=== PATIENT | male | born 1960 | race Caucasian/White ===

== ENCOUNTER → 2020-09-27 | Outpatient (CLI) | payer MEDICAID ==
--- NOTE | 2020-09-28 09:02 | REP ---
INDICATION: ACUTE BRONCHITIS, UNSPECIFIED COPD. COMPARISON: Comparison chest x-ray September 20, 2010. TECHNIQUE: Two views.. FINDINGS: The lungs are hyperinflated but free of infiltrate. Pleural angles are sharp. Heart size is normal. Pulmonary vasculature is not increased. No acute bony abnormality is seen. There are degenerative changes in the thoracic spine. IMPRESSION: Hyperinflation, no active disease.. <Electronically signed by Jay Ferguson > 09/28/20 [id number]
== END ==
LOC: M WUC 15:55
PROVIDERS: ATTEND Nurse Practitioner Adult Health
DX: J20.9 Acute bronchitis, unspecified (principal); J44.1 Chronic obstructive pulmonary disease with (acute) exacerbation; K44.9 Diaphragmatic hernia without obstruction or gangrene

== ENCOUNTER → 2020-10-27 | Outpatient (CLI) | payer OTHER ==
--- NOTE | 2020-10-27 10:05 | REP ---
INDICATION: HEP C COMPARISON: None. TECHNIQUE: Real time tiwari scale ultrasound examination using curved array transducer. FINDINGS: Liver is normal in contour, size, and echogenicity without focal hepatic lesions identified. Pancreas is incompletely evaluated due to interposed bowel gas. The gallbladder is normal and without gallstones, wall thickening, or pericholecystic fluid. There is suggestions for benign adenomyomatosis. No biliary ductal dilatation is appreciated and the common bile duct measures 6.6 mm diameter. Right kidney is normal in reniform shape without hydronephrosis and measures 10.4 x 6.3 x 6.7 cm. No ascites in the visualized right upper quadrant. IMPRESSION: Essentially normal limited right upper quadrant ultrasound <Electronically signed by Jose Tesfaye > 10/27/20 1002
== END ==
LOC: M RAD 09:26
PROVIDERS: ATTEND Internal Medicine Infectious Disease
DX: K74.69 Other cirrhosis of liver (principal)

== ENCOUNTER → 2020-11-12 | Outpatient (CLI) | payer MEDICAID, OTHER ==
[~2020-11-12] MED LIST: INCR1INH; OMEP-221; SOFO1TAB
== END ==
LOC: M LABSMTC 09:39
PROVIDERS: ATTEND Anesthesiology
DX: Z01.812 Encounter for preprocedural laboratory examination (principal)

== ENCOUNTER → 2020-11-16 | Outpatient (REF) | payer OTHER ==
[2020-11-16 15:25] LABS: ALBUMIN 3.5 GM/DL (3.2-5.2); BILIRUBIN,DIRECT 0.1 MG/DL (0.0-0.2); BILIRUBIN,TOTAL 0.3 MG/DL (0.2-1.0); TOTAL PROTEIN 7.1 GM/DL (6.4-8.2)
[2020-11-17 13:07] LABS: HEPATITIS C QUANTITATION <15 IU/mL (.)
== END ==
LOC: M SFHCPLAZ 09:35
PROVIDERS: ATTEND Internal Medicine Infectious Disease
DX: B18.2 Chronic viral hepatitis C (principal); K74.69 Other cirrhosis of liver

== ENCOUNTER 2020-11-17 08:52 | Day surgery (SDC) | payer OTHER ==
[~2020-11-17] VITALS: Ht 170.2 cm; Wt 71.7 kg
[~2020-11-17 08:52] MED LIST changes: +NS 1,000 ML IV ONE
[2020-11-17] MEDS ORDERED: fentaNYL 100 MCG/2 ML INJECTION (J3010) As Ordered ONE (10:34)
[2020-11-17] MEDS ORDERED: LIDOCAINE 2% 100MG/5ML SDV (FOR ANES.) As Ordered ONE (10:34)
[2020-11-17] MEDS ORDERED: propofoL 500 MG/50 ML VIAL As Ordered ONE ×2 (10:34→11:15)
[2020-11-17] MEDS ORDERED: ePHEDrine SULFATE 25 MG/5 ML(5MG/ML) SYRINGE As Ordered ONE (10:46)
--- NOTE | 2020-11-17 11:27 | ROOR ---
Patient Name: Miguel Kim Procedure Date: 11/17/2020 10:29 AM Date of : 1960 Age: 60 Room: [facility] Gender: Male Note Status: Finalized Procedure: Upper GI endoscopy Indications: Heartburn Providers: Edgardo Mccarthy MD Referring MD: DAVID DOWD NP Requesting Provider: Medicines: Monitored Anesthesia Care Complications: No immediate complications. Procedure: Pre-Anesthesia Assessment: - Prior to the procedure, a History and Physical was performed, and patient medications and allergies were reviewed. The patient is competent. The risks and benefits of the procedure and the sedation options and risks were discussed with the patient. All questions were answered and informed consent was obtained. Patient identification and proposed procedure were verified by the physician, the nurse and the anesthesiologist in the endoscopy suite. Mental Status Examination: alert and oriented. Airway Examination: normal oropharyngeal airway and neck mobility. Respiratory Examination: clear to auscultation. CV Examination: normal. Prophylactic Antibiotics: The patient does not require prophylactic antibiotics. Prior Anticoagulants: The patient has taken no previous anticoagulant or antiplatelet agents. ASA Grade Assessment: II - A patient with mild systemic disease. After reviewing the risks and benefits, the patient was deemed in satisfactory condition to undergo the procedure. The anesthesia plan was to use monitored anesthesia care (MAC). Immediately prior to administration of medications, the patient was re-assessed for adequacy to receive sedatives. The heart rate, respiratory rate, oxygen saturations, blood pressure, adequacy of pulmonary ventilation, and response to care were monitored throughout the procedure. The physical status of the patient was re-assessed after the procedure. The Endoscope was introduced through the mouth, and advanced to the second part of duodenum. The upper GI endoscopy was accomplished without difficulty. The patient tolerated the procedure well. Findings: There were esophageal mucosal changes suggestive of short-segment Corley's esophagus present at the gastroesophageal junction. The maximum longitudinal extent of these mucosal changes was 0.5 cm in length. Mucosa was biopsied with a cold forceps for histology. One specimen bottle was sent to pathology. Estimated blood loss was minimal. The entire examined stomach was normal. A single 1 mm mucosal nodule with a localized distribution was found in the duodenal bulb. This was biopsied with a cold forceps for histology. Estimated blood loss was minimal. Impression: - Esophageal mucosal changes suggestive of short-segment Corley's esophagus. Biopsied. - Normal stomach. - Mucosal nodule found in the duodenum. Biopsied. Recommendation: - Discharge patient to home (ambulatory). - Continue present medications. - Await pathology results. - Telephone my office for pathology results in 1 week. Procedure Code(s): --- Professional --- 62861, Esophagogastroduodenoscopy, flexible, transoral; with biopsy, single or multiple Diagnosis Code(s): --- Professional --- K22.8, Other specified diseases of esophagus K31.89, Other diseases of stomach and duodenum R12, Heartburn CPT copyright 2019 [employer]. All rights reserved. The codes documented in this report are preliminary and upon experimental aircraft mechanic review may be revised to meet current compliance requirements. Edgardo Mccarthy MD Edgardo Mccarthy MD 11/17/2020 11:26:20 AM Electronically signed by Edgardo Mccarthy MD Number of Addenda: 0 Note Initiated On: 11/17/2020 10:29 AM Estimated Blood Loss: Estimated blood loss was minimal.
--- NOTE | 2020-11-17 11:32 | ROOR ---
Patient Name: Miguel Kim Procedure Date: 11/17/2020 10:29 AM Date of : 1960 Age: 60 Room: [facility] Gender: Male Note Status: Finalized Procedure: Colonoscopy Indications: Rectal bleeding Providers: Edgardo Mccarthy MD Referring MD: DAVID DOWD NP Requesting Provider: Medicines: Monitored Anesthesia Care Complications: No immediate complications. Procedure: Pre-Anesthesia Assessment: - Prior to the procedure, a History and Physical was performed, and patient medications and allergies were reviewed. The patient is competent. The risks and benefits of the procedure and the sedation options and risks were discussed with the patient. All questions were answered and informed consent was obtained. Patient identification and proposed procedure were verified by the physician, the nurse and the anesthesiologist in the endoscopy suite. Mental Status Examination: alert and oriented. Airway Examination: normal oropharyngeal airway and neck mobility. Respiratory Examination: clear to auscultation. CV Examination: normal. Prophylactic Antibiotics: The patient does not require prophylactic antibiotics. Prior Anticoagulants: The patient has taken no previous anticoagulant or antiplatelet agents. ASA Grade Assessment: II - A patient with mild systemic disease. After reviewing the risks and benefits, the patient was deemed in satisfactory condition to undergo the procedure. The anesthesia plan was to use monitored anesthesia care (MAC). Immediately prior to administration of medications, the patient was re-assessed for adequacy to receive sedatives. The heart rate, respiratory rate, oxygen saturations, blood pressure, adequacy of pulmonary ventilation, and response to care were monitored throughout the procedure. The physical status of the patient was re-assessed after the procedure. The Colonoscope was introduced through the anus and advanced to the cecum, identified by appendiceal orifice and ileocecal valve. The colonoscopy was somewhat difficult. The patient tolerated the procedure well. The quality of the bowel preparation was fair. Findings: The perianal and digital rectal examinations were normal. Three sessile polyps were found in the descending colon. The polyps were 2 to 4 mm in size. These polyps were removed with a hot snare. Resection and retrieval were complete. Estimated blood loss was minimal. A 20 mm polyp was found in the sigmoid colon. The polyp was pedunculated. The polyp was removed with a hot snare. Resection and retrieval were complete. Area was successfully injected with 2 mL Jen ink for tattooing. Estimated blood loss: none. A 10 mm polyp was found in the sigmoid colon. The polyp was pedunculated. The polyp was removed with a hot snare. Resection and retrieval were complete. Estimated blood loss: none. Multiple small-mouthed diverticula were found in the sigmoid colon and descending colon. The retroflexed view of the distal rectum and anal verge was normal and showed no anal or rectal abnormalities. Impression: - Preparation of the colon was fair. - Three 2 to 4 mm polyps in the descending colon, removed with a hot snare. Resected and retrieved. - One 20 mm polyp in the sigmoid colon, removed with a hot snare. Resected and retrieved. Injected. - One 10 mm polyp in the sigmoid colon, removed with a hot snare. Resected and retrieved. - Diverticulosis in the sigmoid colon and in the descending colon. - The distal rectum and anal verge are normal on retroflexion view. Recommendation: - Discharge patient to home (ambulatory). - Telephone my office for pathology results in 1 week. - Repeat colonoscopy in 1 year for surveillance of multiple polyps. Procedure Code(s): --- Professional --- 16499, Colonoscopy, flexible; with removal of tumor(s), polyp(s), or other lesion(s) by snare technique 44962, Colonoscopy, flexible; with directed submucosal injection(s), any substance Diagnosis Code(s): --- Professional --- K63.5, Polyp of colon K62.5, Hemorrhage of anus and rectum K57.30, Diverticulosis of large intestine without perforation or abscess without bleeding CPT copyright 2019 [employer]. All rights reserved. The codes documented in this report are preliminary and upon parboiler review may be revised to meet current compliance requirements. Edgardo Mccarthy MD Edgardo Mccarthy MD 11/17/2020 11:32:10 AM Electronically signed by Edgardo Mccarthy MD Number of Addenda: 0 Note Initiated On: 11/17/2020 10:29 AM Estimated Blood Loss: Estimated blood loss was minimal.
[2020-11-17 11:45] VITALS: BP 118/87
== END 2020-11-17 11:50 | disposition home or self-care (01) ==
LOC: M OPP 08:52
PROVIDERS: ATTEND Surgery
DX: D12.4 Benign neoplasm of descending colon (principal); D12.5 Benign neoplasm of sigmoid colon; K57.30 Diverticulosis of large intestine without perforation or abscess without bleeding; K62.5 Hemorrhage of anus and rectum; K22.8 Other specified diseases of esophagus; K31.89 Other diseases of stomach and duodenum; R12 Heartburn; F17.210 Nicotine dependence, cigarettes, uncomplicated; B19.20 Unspecified viral hepatitis C without hepatic coma; Z79.899 Other long term (current) drug therapy; Z88.8 Allergy status to other drugs, medicaments and biological substances
CPT/HCPCS: 43239; 45381; 45385; 88305; J3010

== ENCOUNTER 2022-07-03 05:09 | Emergency (ER) | payer OTHER ==
[~2022-07-03] VITALS: Ht 170.2 cm; Wt 72.2 kg
[~2022-07-03 05:09] MED LIST changes: -NS 1,000 ML IV ONE; -OMEP-221; +OMEP40CA5
[2022-07-03 05:14] VITALS: BP 160/98
[2022-07-03] MEDS ORDERED: LOPI600T PO (05:21)
== END 2022-07-03 09:35 | disposition left against medical advice (07) ==
LOC: M ED 05:09
DX: Z53.21 Procedure and treatment not carried out due to patient leaving prior to being seen by health care provider (principal)

== ENCOUNTER → 2023-06-11 | Outpatient (CLI) | payer OTHER, MEDICARE ==
[~2023-06-11] MED LIST changes: +LOPI600T PO
== END ==
LOC: M RAD 11:15
PROVIDERS: ATTEND Physician Assistant
DX: Z87.891 Personal history of nicotine dependence (principal)

== ENCOUNTER 2024-08-03 18:28 | Observation (INO) | payer OTHER, MEDICAID ==
[~2024-08-03] VITALS: Ht 165.1 cm; Wt 79.0 kg
[~2024-08-03 18:28] MED LIST changes: -OMEP40CA5; +OMEP40CA5 PO
[2024-08-03] MEDS: methylPREDNISolone 125MG 2ML VIAL IV ONE (20:10)
[2024-08-03 20:14] LABS: BASO % 0.4 % (0.0-1.0); EOS # 0.2 10^3/uL (0.0-0.5); EOS % 1.7 % (0.0-3.0); HEMATOCRIT 42.4 % (42.0-52.0); HEMOGLOBIN 13.4 g/dl (13.5-17.5); LYMPH % 8.8 % (24.0-44.0); MEAN CORPUSCULAR HEMOGLOBIN 32.6 pg (27.0-33.0); MEAN CORPUSCULAR HGB CONC 31.6 g/dl (32.0-36.5); MEAN CORPUSCULAR VOLUME 103.2 fl (80.0-96.0); MONO # 0.3 10^3/uL (0.0-0.8); MONO % 2.9 % (2.0-8.0); NEUTROPHILS # 9.6 10^3/uL (1.5-8.5); NEUTROPHILS % 85.7 % (36.0-66.0); PLATELET COUNT, AUTOMATED 270 10^3/uL (150-450); RED BLOOD COUNT 4.11 10^6/uL (4.30-6.10); WHITE BLOOD COUNT 11.2 10^3/uL (4.0-10.0)
[2024-08-03] MEDS: IPRATROPIUM 0.5MG/ALBUTEROL 2.5MG INH SOL UD 3ML (DUONEB) NEB PRN (20:32)
[2024-08-03 20:37] LABS: ALBUMIN 3.4 G/DL (3.2-5.2); ALKALINE PHOSPHATASE 119 U/L (40-129); ALT/SGPT 14 U/L (7.0-40); AST/SGOT 16 U/L (<34); BILIRUBIN,DIRECT < 0.1 MG/DL (<0.4); BILIRUBIN,TOTAL 0.2 MG/DL (0.3-1.2); BLOOD UREA NITROGEN 15 MG/DL (9-23); CARBON DIOXIDE LEVEL 30 MMOL/L (20-31); CHLORIDE LEVEL 110 MMOL/L (98-107); CREATININE FOR GFR 0.78 MG/DL (0.70-1.30); GLOMERULAR FILTRATION RATE > 60.0 (>49); GLUCOSE, FASTING 144 MG/DL (74-106); POTASSIUM SERUM 4.6 MMOL/L (3.5-5.1); SODIUM LEVEL 145 MMOL/L (136-145); TOTAL PROTEIN 6.6 G/DL (5.7-8.2)
[2024-08-03] MEDS ORDERED: LEVO75TAB PO (22:05)
[2024-08-03] MEDS ORDERED: ALBU2.5V10 INH (22:05)
[2024-08-03 22:28] VITALS: O2SAT 91
[2024-08-03] MEDS ORDERED: ALBU2.5V10 NEB (23:02)
[2024-08-03] MEDS ORDERED: ALBU8.5H INH ×2 (23:02)
[2024-08-03] MEDS ORDERED: HOME MED LIST COMPLETE! XX SCH (23:05)
[2024-08-03] MEDS ORDERED: ALBUTEROL SULFATE 2.5MG/0.5ML INH NEB SOLN NEB PRN (23:25)
[2024-08-03] MEDS ORDERED: MOM 30ML SUSPENSION UDC PO PRN (23:25)
[2024-08-03] MEDS: DOXYCYCLINE HYCLATE 100MG TABLET PO SCH (23:55)
[2024-08-04] MEDS ORDERED: DEXTROMETHORPHAN 60MG/10ML SUSP 90ML BTL(DELSYM) PO PRN (01:10)
[2024-08-04] MEDS: IPRATROPIUM 0.5MG/ALBUTEROL 2.5MG INH SOL UD 3ML (DUONEB) NEB SCH (01:43)
[2024-08-04 06:14] LABS: HEMATOCRIT 42.7 % (42.0-52.0); HEMOGLOBIN 13.1 g/dl (13.5-17.5); MEAN CORPUSCULAR HEMOGLOBIN 31.8 pg (27.0-33.0); MEAN CORPUSCULAR HGB CONC 30.7 g/dl (32.0-36.5); MEAN CORPUSCULAR VOLUME 103.6 fl (80.0-96.0); PLATELET COUNT, AUTOMATED 276 10^3/uL (150-450); RED BLOOD COUNT 4.12 10^6/uL (4.30-6.10); WHITE BLOOD COUNT 12.3 10^3/uL (4.0-10.0)
[2024-08-04 06:45] LABS: ALBUMIN 3.2 G/DL (3.2-5.2); ALKALINE PHOSPHATASE 109 U/L (40-129); ALT/SGPT 11 U/L (7.0-40); AST/SGOT 12 U/L (<34); BILIRUBIN,TOTAL 0.3 MG/DL (0.3-1.2); BLOOD UREA NITROGEN 18 MG/DL (9-23); CALCIUM LEVEL 9.1 MG/DL (8.3-10.6); CARBON DIOXIDE LEVEL 23 MMOL/L (20-31); CHLORIDE LEVEL 107 MMOL/L (98-107); CREATININE FOR GFR 0.76 MG/DL (0.70-1.30); GLOMERULAR FILTRATION RATE > 60.0 (>49); GLUCOSE, FASTING 212 MG/DL (74-106); SODIUM LEVEL 143 MMOL/L (136-145); TOTAL PROTEIN 6.7 G/DL (5.7-8.2)
[2024-08-04] MEDS: predniSONE 20 MG TAB PO SCH (08:44)
[2024-08-04] MEDS: NICOTINE 21MG/24HR 1 EA TRANSDERMAL TD SCH (08:44)
[2024-08-04] MEDS: PANTOPRAZOLE 40MG VIAL IV SCH (08:44)
[2024-08-04] MEDS: SYMBICORT 160/4.5MCG INHALER 6GM INH SCH (08:54)
[2024-08-04] MEDS: ENOXAPARIN 40MG/0.4ML SYRINGE (J1650 PER 10MG) SC SCH (08:54)
[2024-08-04] MEDS ORDERED: MUCI600T31 PO (11:47)
[2024-08-04] MEDS ORDERED: DOXY100T PO (11:47)
[2024-08-04] MEDS ORDERED: NICO21PAT TD (11:47)
[2024-08-04] MEDS ORDERED: PRED20TA PO (11:47)
[2024-08-04] MEDS: guaiFENesin ER TABLET 600 MG TAB PO SCH (12:00)
[2024-08-04 12:48] VITALS: BP 133/68; TEMP 96.8; O2SAT 95
== END 2024-08-04 12:50 | disposition home or self-care (01) ==
LOC: M ED 18:28 → EDBD 18:28 → M ED INP 18:29
PROVIDERS: ADMIT Family Medicine; ATTEND Family Medicine
DX: J44.1 Chronic obstructive pulmonary disease with (acute) exacerbation (principal); G47.30 Sleep apnea, unspecified; R06.02 Shortness of breath; F17.210 Nicotine dependence, cigarettes, uncomplicated; Z79.899 Other long term (current) drug therapy
CPT/HCPCS: 36415; 71045; 80048; 80053; 80076; 85025; 85027; 87486; 87581; 87633; 87798; 93005; 93041; 94010; 94640; 94760; 96374; 96375; 99285; G0378; J2470; J2919; J7512